=== PATIENT | female | born 1975 | race Caucasian/White ===

== ENCOUNTER → 2018-03-28 | Outpatient (CLI) | payer BC ==
--- NOTE | 2018-03-28 11:07 | Diagnostic Imaging Report ---
INDICATION: Palpable lump in the region of the left superior anterior iliac spine region. TECHNIQUE: Interrogation of the area of palpable abnormality was performed. FINDINGS: There is a nonspecific ovoid hypoechoic area of echogenicity measuring 9 mm x 3 mm x 8 mm. No internal vascularity is seen. This is just below the skin surface. IMPRESSION: Nonspecific hypoechoic nodule at the area of palpable abnormality just below the skin surface without internal vascularity. Clinical followup to confirm stability is recommended. Dictated by: Dictated on workstation # [id number]
== END ==
LOC: RAD 09:26
PROVIDERS: ATTEND Nurse Practitioner Family
DX: R22.2 Localized swelling, mass and lump, trunk (principal)
CPT/HCPCS: 76999

== ENCOUNTER → 2020-09-07 | Outpatient (CLI) | payer BC ==
[2020-09-07 10:38] LABS: ABSOLUTE RETIC # 60 10e9/uL (24-90); BASOPHILS % (AUTO) 0 % (0-10); EOSINOPHILS # (AUTO) 0.2 10^3/uL (0.0-0.3); EOSINOPHILS % (AUTO) 2 % (0-10); HEMATOCRIT 42 % (35-52); HEMOGLOBIN 13.7 g/dL (11.5-16.0); LYMPHOCYTES # (AUTO) 1.8 10^3/uL (1.0-4.0); LYMPHOCYTES % (AUTO) 24 % (12-44); MEAN CORPUSCULAR HEMOGLOBIN 32 pg (25-34); MEAN CORPUSCULAR HGB CONC 32 g/dL (32-36); MEAN CORPUSCULAR VOLUME 100 fL (80-99); MEAN PLATELET VOLUME 11.3 fL (9.0-12.2); MONOCYTES # (AUTO) 0.5 10^3/uL (0.0-1.0); MONOCYTES % (AUTO) 7 % (0-12); NEUTROPHILS # (AUTO) 4.8 10^3/uL (1.8-7.8); NEUTROPHILS % (AUTO) 66 % (42-75); WHITE BLOOD COUNT 7.3 10^3/uL (4.3-11.0)
[2020-09-07 10:56] LABS: BASOPHILS % (MANUAL) 0 %; EOSINOPHILS % (MANUAL) 2 %; LYMPHOCYTES % (MANUAL) 16 %; MONOCYTES % (MANUAL) 3 %; NEUTROPHILS % (MANUAL) 67 %; PLATELET COUNT 212 10^3/uL (130-400)
[2020-09-07 10:57] LABS: RBC MORPH NORMAL; REACTIVE LYMPHOCYTES 12 %
== END ==
LOC: LAB 10:07
PROVIDERS: ATTEND Nurse Practitioner Family
DX: D69.6 Thrombocytopenia, unspecified (principal)
CPT/HCPCS: 36415; 85007; 85027; 85045; 85055

== ENCOUNTER 2021-06-03 14:00 | Outpatient (RCR) | payer BC ==
[2021-06-03 15:38] LABS: BASOPHILS % (AUTO) 1 % (0-10); EOSINOPHILS # (AUTO) 0.1 10^3/uL (0.0-0.3); EOSINOPHILS % (AUTO) 2 % (0-10); HEMATOCRIT 42 % (35-52); HEMOGLOBIN 13.8 g/dL (11.5-16.0); LYMPHOCYTES # (AUTO) 2.1 X 10^3 (1.0-4.0); LYMPHOCYTES % (AUTO) 27 % (12-44); MEAN CORPUSCULAR HEMOGLOBIN 32 pg (25-34); MEAN CORPUSCULAR HGB CONC 33 g/dL (32-36); MEAN CORPUSCULAR VOLUME 97 fL (80-99); MEAN PLATELET VOLUME 9.8 fL (9.0-12.2); MONOCYTES # (AUTO) 0.7 X 10^3 (0.0-1.0); MONOCYTES % (AUTO) 8 % (0-12); NEUTROPHILS # (AUTO) 4.9 X 10^3 (1.8-7.8); NEUTROPHILS % (AUTO) 62 % (42-75); PLATELET COUNT 267 10^3/uL (130-400); WHITE BLOOD COUNT 7.8 10^3/uL (4.3-11.0)
[2021-06-03 16:03] LABS: ALBUMIN 4.2 GM/DL (3.2-4.5); BILIRUBIN,TOTAL 0.2 MG/DL (0.1-1.0); CALCIUM 9.3 MG/DL (8.5-10.1); CREATININE SERUM 0.8 MG/DL (0.60-1.30); POTASSIUM 4.2 MMOL/L (3.6-5.0); TOTAL PROTEIN 8.1 GM/DL (6.4-8.2)
== END 2021-06-28 | disposition home or self-care (01) ==
LOC: ONC 14:00
PROVIDERS: ATTEND Internal Medicine Hematology & Oncology
DX: D69.59 Other secondary thrombocytopenia (principal); Z79.899 Other long term (current) drug therapy
CPT/HCPCS: 80053; 84443; 85025; G0463; 99214

== ENCOUNTER → 2022-05-11 | Outpatient (CLI) | payer BC ==
[~2022-05-11] MED LIST: GADOTERATE 0.5 MMOL/ML (CLARISCAN) 20 ML VIAL IV ONE
--- NOTE | 2022-05-11 16:03 | Diagnostic Imaging Report ---
CLINICAL INDICATION: Patient is having episodes of headaches, pretty severe. Patient's platelet level is 33. EXAM: MRI of the brain performed without and with 12 cc of Clariscan IV contrast. Sequences include axial DWI, ADC map, axial gradient echo, axial FLAIR, axial T1, axial T2, axial T1 post IV contrast whole brain, coronal T1 fat-sat post IV contrast whole brain, and sagittal T1 fat-sat post IV contrast whole brain. COMPARISON: None. FINDINGS: There is nonsuppression of CSF signal on the FLAIR sequence involving the bilateral occipital regions. There is no abnormal enhancement in the region. There is no abnormal low gradient echo signal. There is no diffusion restriction abnormality. It is suspected that these findings may be artifactual, but unable to explain etiology for the artifact. Blood in this region should be excluded. Otherwise, there is no other concern for intracranial hemorrhage. There is no acute cerebral infarct, brain herniation or midline shift. There is no hydrocephalus. Basal cisterns are unremarkable. Visualized [place] vascular structures are unremarkable. The [place] and suprasellar regions are unremarkable. There is susceptibility artifact which obscures the globes. Eyeliner may be a consideration for the artifact. Otherwise, the extracranial soft tissues, skull and orbits are unremarkable. Paranasal sinuses and mastoid air cells are clear. IMPRESSION: 1: There is nonsuppression of CSF signal on the axial FLAIR sequence involving the bilateral occipital lobe regions. There is no other abnormality on the other sequences. There is no enhancement seen in the region. There is no visible areas causing susceptibility artifact. Unknown if these signal within the subarachnoid space in the occipital lobes is artifactual versus hyperacute subarachnoid blood. Head CT without contrast is suggested for further evaluation. 2: Otherwise coronal unremarkable MRI of the brain. Results of this report discussed with Dr. Augusta Butler via the telephone on 05/11/2022 at 1550 hours. Dictated by: Dictated on workstation # [id number]
== END ==
LOC: RAD 14:38
PROVIDERS: ATTEND Family Medicine
DX: D69.6 Thrombocytopenia, unspecified (principal); R51.9 Headache, unspecified
CPT/HCPCS: 70553

== ENCOUNTER → 2022-05-11 | Outpatient (CLI) | payer BC ==
--- NOTE | 2022-05-11 16:49 | Diagnostic Imaging Report ---
INDICATION: Altered mental status. EXAMINATION: CT head without contrast. The ventricles are normal in size, shape and position. There are no masses or hemorrhages. There are no extra-axial fluid collections. IMPRESSION: Negative CT head. Dictated by: Dictated on workstation # [id number]
== END ==
LOC: RAD 16:23
PROVIDERS: ATTEND Family Medicine
DX: R41.82 Altered mental status, unspecified (principal); R51.9 Headache, unspecified
CPT/HCPCS: 70450

== ENCOUNTER 2022-05-16 13:34 | Outpatient (RCR) | payer BC ==
[2022-05-16 14:37] LABS: BASOPHILS % (AUTO) 0 % (0-10); EOSINOPHILS # (AUTO) 0.1 10^3/uL (0.0-0.3); EOSINOPHILS % (AUTO) 2 % (0-10); HEMATOCRIT 42 % (35-52); HEMOGLOBIN 13.8 g/dL (11.5-16.0); LYMPHOCYTES # (AUTO) 1.8 X 10^3 (1.0-4.0); LYMPHOCYTES % (AUTO) 20 % (12-44); MEAN CORPUSCULAR HEMOGLOBIN 32 pg (25-34); MEAN CORPUSCULAR HGB CONC 33 g/dL (32-36); MEAN CORPUSCULAR VOLUME 97 fL (80-99); MEAN PLATELET VOLUME 9.9 fL (9.0-12.2); MONOCYTES # (AUTO) 0.6 X 10^3 (0.0-1.0); MONOCYTES % (AUTO) 7 % (0-12); NEUTROPHILS # (AUTO) 6.2 X 10^3 (1.8-7.8); NEUTROPHILS % (AUTO) 71 % (42-75); PLATELET COUNT 268 10^3/uL (130-400); WHITE BLOOD COUNT 8.8 10^3/uL (4.3-11.0)
== END 2022-05-28 | disposition home or self-care (01) ==
LOC: ONC 13:34
PROVIDERS: ATTEND Internal Medicine Hematology & Oncology
DX: D69.59 Other secondary thrombocytopenia (principal); N92.5 Other specified irregular menstruation; Z86.59 Personal history of other mental and behavioral disorders
CPT/HCPCS: 85025; G0463; 99213